=== PATIENT | female | born 2000 | race Caucasian/White ===

== ENCOUNTER 2024-11-28 13:54 | Emergency (ER) | payer SELFPAY ==
[2024-11-28 15:29] LABS: KETONE, URINE AUTO RFX NEGATIVE (NEGATIVE); MUCUS, URINE RFX SMALL (NEGATIVE); NITRITE, URINE AUTO RFX NEGATIVE (NEGATIVE); RBC, URINE AUTO RFX 2 /HPF (0-3); SQUAM EPITHELIAL CELL UR AURFX 2 /HPF (0-6); WBC, URINE AUTO RFX 1 /HPF (0-3)
[2024-11-28 15:34] LABS: LEUKOCYTE ESTERASE UR AUTO RFX TRACE (NEGATIVE)
[2024-11-28 15:38] LABS: URINE PREG TEST NEGATIVE (NEGATIVE)
[2024-11-28 16:28] LABS: Trichomonas vaginalis (AMP) NOT DETECTED (NEGATIVE)
[2024-11-28 16:51] LABS: GC DNA AMPLIFICATION NEGATIVE (NEGATIVE)
[2024-11-28 18:05] VITALS: BP 113/55; TEMP 98.1; O2SAT 100
[2024-11-28] MEDS ORDERED: PYRI1TAB5 PO (18:35)
== END 2024-11-28 18:52 | disposition home or self-care (01) ==
LOC: M ED 13:54
DX: R30.0 Dysuria (principal); Z79.899 Other long term (current) drug therapy